=== PATIENT | male | born 1955 | race Caucasian/White ===

== ENCOUNTER 2016-10-29 12:13 | Observation (INO) | payer MEDICAID, OTHER ==
[2016-10-29] MEDS ORDERED: Sodium Chloride 0.9% 1,000 ML IV ONE (14:24)
[2016-10-29] MEDS ORDERED: Sodium Chloride 0.9% 1,000 ML ONE (14:34)
[2016-10-29 14:53] LABS: BASO % 0.6 % (0.0-2.0); EOS # 0.2 K/uL (0.0-0.7); EOS % 3.2 % (0.0-4.0); HEMATOCRIT 46.6 % (35.0-51.0); LYMPH # 0.9 K/uL (1.0-4.3); LYMPH % 15.7 % (20.0-40.0); MEAN CELL VOLUME 85.8 fL (80.0-94.0); MEAN CORPUSCULAR HEMOGLOBIN 28.5 pg (27.0-31.0); MEAN CORPUSCULAR HGB CONC 33.2 g/dL (33.0-37.0); MEAN PLATELET VOLUME 9.3 fL (7.2-11.7); MONO # 0.6 K/uL (0.0-0.8); MONO % 10.9 % (0.0-10.0); NRBC % 0.1 % (0.0-2.0); RED CELL DISTRIBUTION WIDTH 13.4 % (11.5-14.5); WHITE BLOOD COUNT 5.6 K/uL (4.8-10.8)
[2016-10-29 15:08] LABS: CHLORIDE 96 mmol/L (98-107); POTASSIUM 4.1 mmol/L (3.6-5.2); SODIUM 137 mmol/L (132-148)
[2016-10-29 15:10] LABS: ALKALINE PHOSPHATASE 141 U/L (38-126); AST/SGOT 120 U/L (17-59); CARBON DIOXIDE 31 mmol/L (22-30); GFR AFRICAN-AMERICAN > 60; TOTAL PROTEIN 7.6 g/dL (6.3-8.3)
[2016-10-29 15:11] LABS: ALCOHOL SERUM < 10 mg/dl (0-10); ALT/SGPT 109 U/L (21-72); BLOOD UREA NITROGEN 21 mg/dL (9-20); CALCIUM 8.7 mg/dl (8.6-10.4); GLUCOSE,RANDOM 96 mg/dL (75-110)
[2016-10-29] MEDS ORDERED: Iodixanol 320 MG/ML 100 ML BOTTLE IV ONE (16:21)
--- NOTE | 2016-10-29 17:40 | C.PDOC ---
History Of Present Illness The patient, a 61 y/o male presents to the emergency department for evaluation of sore throat and pain with swallowing which began 5 days ago. Patient states he was evaluated by his PMD 3 days ago and was prescribed antibiotics- PCN. (+) fever. Pt notes "i cant swallow". Pain and swelling all left sided. He also had one episode of vomiting today and notes there were "black specs" in the vomitus. No blood. Also note dental pain. Patient states his symptoms have still persisted and presents to the emergency department for further evaluation. He denies fever, chills, back pain. Time Seen by Provider: 10/29/16 12:39 Chief Complaint (Nursing): GI Problem History Per: Patient, Family History/Exam Limitations: no limitations Onset/Duration Of Symptoms: Days Current Symptoms Are (Timing): Still Present Additional History Per: Patient Past Medical History Reviewed: Historical Data, Nursing Documentation, Vital Signs Vital Signs: Last Vital Signs Temp 98 F 10/30/16 15:00 Pulse 61 10/30/16 15:00 Resp 20 10/30/16 15:00 BP 128/78 10/30/16 15:00 Pulse Ox 97 10/30/16 15:00 - Medical History Other PMH: Enlarged prostate and tremors Surgical History: No Surg Hx - [facility] Procedures CYSTOSCOPY NEC (07/17/13) TRANSURETH BLADD BIOPSY (07/17/13) Family History: States: Unknown Family Hx - Social History Hx Tobacco Use: No Hx Alcohol Use: No Hx Substance Use: No - Immunization History Hx Tetanus Toxoid Vaccination: No Hx Influenza Vaccination: No Hx Pneumococcal Vaccination: No Review Of Systems Except As Marked, All Systems Reviewed And Found Negative. Constitutional: Positive for: Fever, Chills ENT: Positive for: Throat Pain, Other (+painful swallowing ) Gastrointestinal: Positive for: Nausea, Vomiting Physical Exam - Physical Exam Appears: Non-toxic, Other (pt looks uncomfortable ) Skin: Normal Color, Warm, Dry Head: Atraumatic, Normacephalic Eye(s): bilateral: Normal Inspection, PERRL, EOMI Ear(s): Bilateral: Normal Nose: Normal, No Discharge Oral Mucosa: Moist, No Drooling, No Trismus Teeth: No Normal Dentition (poor dentition) Gingiva: Normal Appearing Throat: Exudate (left-sided ), No Drooling, Other (+left-sided swelling. able to swallow saliva ) Neck: Normal ROM, Supple Lymphatic: Adenopathy (left-sided cervical) Chest: Symmetrical, No Deformity, No Tenderness Cardiovascular: Rhythm Regular, No Murmur Respiratory: Normal Breath Sounds, No Rales, No Rhonchi, No Wheezing Gastrointestinal/Abdominal: Soft, No Tenderness, No Guarding, No Rebound Back: Normal Inspection, No Vertebral Tenderness, No Paraspinal Tenderness Extremity: Normal ROM, Capillary Refill (less than 2 seconds ) Neurological/Psych: Oriented x3, Normal Speech, Normal Cognition Gait: Steady ED Course And Treatment - Laboratory Results Result Diagrams: 10/30/16 07:17 10/30/16 07:17 ECG: Interpreted By Me, Viewed By Me ECG Rhythm: Sinus Rhythm Interpretation Of ECG: Sinus Rhythm at rate 81bpm. Rate From EC O2 Sat by Pulse Oximetry: 96 (on RA) Pulse Ox Interpretation: Normal - CT Scan/US neck CT Other Rad Studies (CT/US): Interpreted By Me, Read By Radiologist, Radiology Report Reviewed CT/US Interpretation: Accession No. : [id number]. Patient Name / ID : ROSANNE KUO / [id number]. Exam Date : 10/29/2016 16:29:15 ( Approved ). Study Comment : Sex / Age : M / [id number]. Creator : Cece Engel. Dictator : Cece Engel. Chemical Process Project Engineer : Production Worker : Cece Engel. Approver2 : Report Date : 10/29/2016 17:55:10. My Comment : . PROCEDURE: CT NECK WITH CONTRAST. HISTORY: difficulty swallowing. COMPARISON: None. TECHNIQUE : CT of the neck with intravenous contrast. Coronal and sagittal reformats generated. Intravenous contrast dose: 100 mL Visipaque 320. Radiation dose: DLP 382.53 mGy-cm. This CT exam was performed using one or more of the following dose reduction techniques: Automated exposure control, adjustment of the mA and/or kV according to patient size, and/or use of iterative reconstruction technique. FINDINGS: NASOPHARYNX: Unremarkable. SUPRAHYOID NECK: There is diffuse heterogeneous enhancing soft tissue swelling at the left suprahyoid neck extending from the level of the tonsils to the level of the focal cord. There is a complete obliteration of the left vallecula and left piriform sinus. INFRAHYOID NECK: No evidence of mass lesion at the larynx. MASS: The possibility of mass lesion at the left piriform sinus or left tonsil cannot be excluded. GLANDS: Parotid and submandibular glands unremarkable. Normal size thyroid gland, without nodule. LYMPH NODES: Mildly enlarged left mid to upper neck level 2 lymph nodes are seen. CERVICAL SPINE: No fracture or focal lesion. VASCULAR STRUCTURES: Atherosclerotic disease seen. Mild stenosis seen at the origin of the left internal carotid artery. OTHER FINDINGS: None. IMPRESSION: Enhancing soft tissue swelling at the left neck extending from the left tonsil to the level of the hyoid bone with complete obliteration of the left vallecula and left piriform sinus. The differential diagnosis includes malignant neoplasm versus infection process. Mildly enlarged level 2 left lymphadenopathy. Progress Note: labs, EKG, CT Neck ordered and reviewed. Pt received Toradol IV and IV Fluids. On ree-valuation, pt notes he feels much better. TOlerating juice. Pain improved. Afebrile. CT evlauated, Case discussed with DR Bermudez, agreed upon plan and treatment. Case discussed with Dr. Flanagan, CT discussed, and instructs hospital admission. Case dicussed with hospitalist, who agrees with plan for admission. Disposition - Disposition Disposition: HOSPITALIZED Disposition Time: 19:00 Condition: GOOD - Clinical Impression Clinical Impression: Pharyngitis, Lymphadenopathy, Difficulty swallowing - PA / TANK TRUCK MECHANIC / Resident Statement MD/DO has reviewed & agrees with the documentation as recorded. - Scribe Statement The provider has reviewed the documentation as recorded by the Scribe (Constanza Silvestre) All medical record entries made by the Scribe were at my direction and personally dictated by me. I have reviewed the chart and agree that the record accurately reflects my personal performance of the history, physical exam, medical decision making, and the department course for this patient. I have also personally directed, reviewed, and agree with the discharge instructions and disposition.
--- NOTE | 2016-10-29 17:56 | CT ---
PROCEDURE: CT NECK WITH CONTRAST HISTORY: difficulty swallowing COMPARISON: None TECHNIQUE: CT of the neck with intravenous contrast. Coronal and sagittal reformats generated. Intravenous contrast dose: 100 mL Visipaque 320 Radiation dose: DLP 382.53 mGy-cm This CT exam was performed using one or more of the following dose reduction techniques: Automated exposure control, adjustment of the mA and/or kV according to patient size, and/or use of iterative reconstruction technique. FINDINGS: NASOPHARYNX: Unremarkable. SUPRAHYOID NECK: There is diffuse heterogeneous enhancing soft tissue swelling at the left suprahyoid neck extending from the level of the tonsils to the level of the focal cord. There is a complete obliteration of the left vallecula and left piriform sinus INFRAHYOID NECK: No evidence of mass lesion at the larynx. MASS: The possibility of mass lesion at the left piriform sinus or left tonsil cannot be excluded GLANDS: Parotid and submandibular glands unremarkable. Normal size thyroid gland, without nodule. LYMPH NODES: Mildly enlarged left mid to upper neck level 2 lymph nodes are seen. CERVICAL SPINE: No fracture or focal lesion. VASCULAR STRUCTURES: Atherosclerotic disease seen. Mild stenosis seen at the origin of the left internal carotid artery. OTHER FINDINGS: None. IMPRESSION: Enhancing soft tissue swelling at the left neck extending from the left tonsil to the level of the hyoid bone with complete obliteration of the left vallecula and left piriform sinus. The differential diagnosis includes malignant neoplasm versus infection process. Mildly enlarged level 2 left lymphadenopathy.
[2016-10-29] MEDS ORDERED: Dexamethasone 4 mg/1 ml IVP STA (18:21)
[2016-10-29] MEDS ORDERED: Piperacillin/Tazobact 3.375 gm 100 ML IV STA (18:21)
[2016-10-29] MEDS ORDERED: Piperacillin/Tazobact 3.375 gm 100 ML IVPB ONE (18:29)
[2016-10-29] MEDS ORDERED: Dexamethasone 4 mg/1 ml ONE (18:29)
--- NOTE | 2016-10-29 19:57 | CP.PCM.HP ---
<Denia May - Last Filed: 10/29/16 22:55> History of Present Illness - History of Present Illness History of Present Illness: CC: my throat hurts HPI: 61 year old male PMHx BPH and tremors presents with left throat pain and fevers for 6 days. Patient reports symptoms started on Saturday with fever and chills for which he took tylenol. Patient stated that he was having some throat pain at the time but it was manageable. From Saturday until Saturday, however, the throat pain worsened and fevers continued. He described the pain as >20/10 and sharp and stabbing in nature and constant. He reported the tylenol would help bring his fever down but would not help magnolia the pain. The throat pain radiated to his left ear and he developed a headache. Patient reports a Tmax of 100.5F. On Saturday, he saw a physician, Dr. Gamez, [who is not his PMD as patient does not have a PMD] and was given Penicillin which he was supposed to take for 10 days. Patient took 4 doses of the PCN but as the pain and fevers persisted he decided to come in this morning. Patient also had four episodes of emesis on Saturday [the day before admission] which he reports happened after he tried to drink some milk, water, and juice. He denied any blood or coffee ground emesis but stated he noticed some black dots. This is the first time patient has had this constellation of symptoms. He reports pain with drinking liquids [ie gatorade, water, milk, chiku juice], and nausea. Patient last saw a dentist, John Pemberton, in March 2016. He reports that since he has had this throat pain he has been experiencing some pain in the bottom molars. Patient has never had any cavities, root canal, and has not had a wisdom tooth extraction. He does however, have poor dentition. He denies chewing tobacco/paan. On ROS patient admitted to fever, chills, weakness, headache, left ear pain, left sided face pain, sore throat, dysphagia, nausea, vomiting, and decreased appetite secondary to pain with swallowing. He deneid diaphoresis, headache, dizziness, lightheadedness, blurry vision, chest pain, palpitations, SOB, cough, abd pain, bowel/bladder complaints, hematemesis, hematochezia, back pain, leg pain, leg swelling, rash, easy bruising, easy bleeding, recent travel, recent sickness, sick contacts. Patient last visited [place] in May 2016. PMHx: BPH and tremors PSHx: denies ALL: denies Medications: Tamsulosin Social Hx: denies tobacco, EtOH, drugs. Patient lives at home with his son. Does not work. Family Hx: denies any cardiac issues, cancer, CVA in the family. Brother has DM2 PMD: denies ED Course: labs, EKG, CT Neck Enhancing soft tissue swelling at the left neck extending from the left tonsil to the level of the hyoid bone with complete obliteration of the left vallecula and left piriform sinus. The differential diagnosis includes malignant neoplasm versus infection process. Mildly enlarged level 2 left lymphadenopathy. Pt received Toradol IV and IV Fluids. Case discussed with Dr. Flanagan, who instructed hospital admission. Present on Admission - Present on Admission Any Indicators Present on Admission: No Review of Systems - Constitutional Constitutional: As Per HPI, Chills, Fever, Headache, Weight Loss, Weakness. absent: Excessive Sweating, Frequent Falls, Increased Appetite, Lethargy, Malaise, Night Sweats, Weight Gain - EENT Eyes: As Per HPI. absent: Change in Vision Ears: As Per HPI, Ear Pain (left sided). absent: Tinnitus, Disequilibrium, Dizziness Nose/Mouth/Throat: As Per HPI, Dental Pain (lower teeth), Dysphagia (secondary to pain), Sore Throat, Throat Swelling (L > R), Facial Pain (left side), Neck Pain (L > R), Neck Mass (left side). absent: Nasal Congestion, Post Nasal Drip , Change in Voice, Dry Mouth, Hoarsness, Lip Swelling, Mouth Lesions - Cardiovascular Cardiovascular: As Per HPI. absent: Chest Pain, Dyspnea, Edema, Leg Edema, Palpitations - Respiratory Respiratory: As Per HPI. absent: Cough, Hemoptysis, Dyspnea on Exertion, Wheezing, Chest Congestion - Gastrointestinal Gastrointestinal: As Per HPI, Dysphagia (secondary to pain), Nausea, Vomiting ( 4 times- nonbloody nonblious on day before admission). absent: Abdominal Pain, Coffee Ground Emesis, Constipation, Cramping, Diarrhea, Hematemesis, Hematochezia, Melena - Genitourinary Genitourinary: As Per HPI. absent: Dysuria, Hematuria, Pyuria, Nocturia - Musculoskeletal Musculoskeletal: As Per HPI. absent: Arthralgias, Back Pain, Numbness, Tingling - Integumentary Integumentary: As Per HPI, Swelling (left throat). absent: Pruritus, Rash - Neurological Neurological: As Per HPI, Headaches (radiating from throat), Weakness ( secondary to decreased PO intake). absent: Confusion, Dizziness, Syncope, Tingling - Psychiatric Psychiatric: As Per HPI. absent: Anxiety, Depression - Endocrine Endocrine: As Per HPI. absent: Palpitations, Polydipsia, Polyphagia, Polyuria - Hematologic/Lymphatic Hematologic: As Per HPI. absent: Easy Bleeding, Easy Bruising, Lymphadenopathy Past Patient History - Infectious Disease Hx of Infectious Diseases: None - Past Medical History & Family History Past Medical History?: Yes - Past Social History Smoking Status: Never Smoked - NEUROLOGICAL Hx Seizures: Yes - MUSCULOSKELETAL/RHEUMATOLOGICAL Hx Falls: Yes - GENITOURINARY/GYNECOLOGICAL Hx Prostate Problems: Yes Hx Urinary Tract Infection: Yes - PSYCHIATRIC Hx Substance Use: No - ANESTHESIA Hx Anesthesia: No Meds Allergies/Adverse Reactions: Allergies Allergy/AdvReac Type Severity Reaction Status Date / Time No Known Allergies Allergy Verified 05/29/15 18:11 Physical Exam - Constitutional Appears: Well, Non-toxic, No Acute Distress - Head Exam Head Exam: ATRAUMATIC, NORMAL INSPECTION, NORMOCEPHALIC - Eye Exam Eye Exam: EOMI, Normal appearance, PERRL. absent: Conjunctival injection, Scleral icterus Pupil Exam: NORMAL ACCOMODATION - ENT Exam ENT Exam: Mucous Membranes Dry Additional comments: no erythema noted some exudate on left side - Neck Exam Neck exam: Positive for: Full Rom, Lymphadenopathy (left side). Negative for: Meningismus, Normal Inspection, Tenderness (to palpation of cervical LN) Additional comments: left sided exudate and + left sided swelling non tender when palpating cervical LN + adenopathy on left side - Respiratory Exam Respiratory Exam: Clear to Auscultation Bilateral, NORMAL BREATHING PATTERN. absent: Accessory Muscle Use, Rales, Rhonchi, Wheezes, Respiratory Distress - Cardiovascular Exam Cardiovascular Exam: Tachycardia, REGULAR RHYTHM, +S1, +S2 - GI/Abdominal Exam GI & Abdominal Exam: Normal Bowel Sounds, Soft. absent: Firm, Guarding, Rigid, Tenderness - Rectal Exam Rectal Exam: Deferred - Extremities Exam Extremities exam: Positive for: normal capillary refill, normal inspection, pedal pulses present. Negative for: joint swelling, pedal edema, tenderness - Back Exam Back exam: NORMAL INSPECTION. absent: paraspinal tenderness, rash noted, tenderness - Neurological Exam Neurological exam: Alert, CN II-XII Intact, Oriented x3 - Psychiatric Exam Psychiatric exam: Normal Affect, Normal Mood - Skin Skin Exam: Dry, Intact, Normal Color, Warm Results - Vital Signs Recent Vital Signs: Last Vital Signs Temp 98.8 F 10/29/16 17:33 Pulse 75 10/29/16 19:01 Resp 18 10/29/16 19:01 BP 120/70 10/29/16 19:01 Pulse Ox 99 10/29/16 19:01 - Labs Result Diagrams: 10/29/16 14:48 10/29/16 14:48 Assessment & Plan - Assessment and Plan (Free Text) Assessment: 61 year old male PMHx BPH and tremors presents with left throat pain and fevers for 6 days Plan: Unilateral throat mass -likely secondary to infection vs neoplasm -CT Neck: Enhancing soft tissue swelling at the left neck extending from the left tonsil to the level of the hyoid bone with complete obliteration of the left vallecula and left piriform sinus. The differential diagnosis includes malignant neoplasm versus infection process. Mildly enlarged level 2 left lymphadenopathy -preop EKG, CXR, PT/INR ordered- f/u -no leukocytosis on admission -NPO -Zosyn 3.375gm IVPB Q6H -Tylenol solution 650mg po q4 prn for fever -Decadron 4mg ivp q8h true for inflammation -Toradol 30mg ivp q6 prn pain [mod] -NS @ 100cc/hr -f/u AM labs, lipid panel, HgbA1c -f/u blood culture -f/u throat culture -Consult Dr. Flanagan aware Transaminitis -patient has no alcohol history -AST 120 ALT 108 Alk Phos 141 -f/u acute hep panel -f/u Abd u/s CORNELL -BUN 21 Cr 1.1 -likely secondary to dehydration secondary to decreased PO intake and vomiting -NS @ 100cc/hr -f/u AM labs Hx BPH -hold home dose flomax 0.4mg po as patient cannot swallow well PPX -SCD -Protonix 40mg ivp daily -VTE ppx c/i in case patient goes to [place] -NPO -NS @ 100cc/hr Case discussed with Dr. Magi May PGY1 <Farooq Sow - Last Filed: 10/30/16 06:21> Results - Vital Signs Recent Vital Signs: Last Vital Signs Temp 98.2 F 10/30/16 00:00 Pulse 66 10/30/16 00:00 Resp 20 10/30/16 00:00 BP 122/78 10/30/16 00:00 Pulse Ox 96 10/30/16 00:00 - Labs Result Diagrams: 10/29/16 14:48 10/29/16 14:48 Assessment & Plan - Date & Time Date: 10/30/16 (I have seen and examined the patient. I agree with the findings and plan of care as documented by Dr. May. Patient with throat mass. Consult to Dr Flanagan. Alexussyn, Decadron, and symptomatic treatment. Also with transaminitis. Check hep panel and abdominal U/S. Monitor for acute changes.) Time: 06:20 Attending/Attestation - Attestation I have personally seen and examined this patient.: Yes I have fully participated in the care of the patient.: Yes I have reviewed all pertinent clinical information: Yes
[2016-10-29] MEDS ORDERED: Acetaminophen 650mg/20.3ml solution UD PO PRN (22:49)
[2016-10-29] MEDS: Sodium Chloride 0.9% 1,000 ML IV SCH (23:47)
[2016-10-29] MEDS: Dexamethasone 4 mg/1 ml IVP SCH (23:50)
[2016-10-30 00:19] VITALS: RESP 20
[2016-10-30] MEDS: Piperacill/Tazo 3.375gm in Dex 3.375 GM/50 ML BAG IVPB SCH ×3 (00:29→11:06)
[2016-10-30] MEDS: Dexamethasone 4 mg/1 ml IVP SCH ×2 (06:22→15:10)
[2016-10-30 07:38] LABS: INR 1.1
[2016-10-30 07:44] LABS: BASO % 0.3 % (0.0-2.0); EOS % 0.2 % (0.0-4.0); HEMATOCRIT 41.7 % (35.0-51.0); LYMPH # 0.5 K/uL (1.0-4.3); LYMPH % 15.2 % (20.0-40.0); MEAN CELL VOLUME 84.6 fL (80.0-94.0); MEAN CORPUSCULAR HGB CONC 34.3 g/dL (33.0-37.0); MEAN PLATELET VOLUME 9.2 fL (7.2-11.7); MONO # 0.1 K/uL (0.0-0.8); NRBC % 0.1 % (0.0-2.0); RED CELL DISTRIBUTION WIDTH 13.3 % (11.5-14.5); WHITE BLOOD COUNT 3.3 K/uL (4.8-10.8)
--- NOTE | 2016-10-30 07:51 | CP.PCM.PN ---
Subjective - Date & Time of Evaluation Date of Evaluation: 10/30/16 Time of Evaluation: 07:50 - Subjective Subjective: Patient seen and examined at bedside. Objective - Vital Signs/Intake and Output Vital Signs (last 24 hours): Temp Pulse Resp BP Pulse Ox 98.2 F 66 20 122/78 96 10/30/16 00:00 10/30/16 00:00 10/30/16 00:00 10/30/16 00:00 10/30/16 00:00 Intake and Output: 10/30/16 10/30/16 06:59 18:59 Intake Total 800 Balance 800 - Medications Medications: Current Medications Acetaminophen (Tylenol 650mg/20.3ml Solution Ud) 650 mg PO Q4H PRN PRN Reason: Fever >100.4 F Dexamethasone (Decadron Inj) 4 mg IVP Q8H [facility] Last Admin: 10/30/16 06:22 Dose: 4 mg Piperacillin Sod/Tazobactam Sod (Zosyn 3.375 Gm Iv Premix) 3.375 gm in 50 mls @ 100 mls/hr IVPB Q6H [facility] Last Admin: 10/30/16 05:37 Dose: 100 mls/hr Sodium Chloride (Sodium Chloride 0.9%) 1,000 mls @ 100 mls/hr IV .Q10H [facility] Last Admin: 10/29/16 23:47 Dose: 100 mls/hr Ketorolac Tromethamine (Toradol) 30 mg IVP Q6 PRN PRN Reason: Pain, moderate (4-7) Pantoprazole Sodium (Protonix Inj) 40 mg IVP DAILY [facility] Pneumococcal Polyvalent Vaccine (Pneumovax 23 Vaccine) 0.5 ml IM .ONCE ONE Stop: 11/01/16 10:01 - Labs Labs: 10/30/16 07:17 PT 13.0 SECONDS (9.7-12.2) H 10/30/16 07:17 INR 1.1 10/30/16 07:17 APTT 30 SECONDS (21-34) 10/30/16 07:17 Assessment and Plan - Assessment and Plan (Free Text) Assessment: Unilateral throat mass -likely secondary to infection vs neoplasm -CT Neck: Enhancing soft tissue swelling at the left neck extending from the left tonsil to the level of the hyoid bone with complete obliteration of the left vallecula and left piriform sinus. The differential diagnosis includes malignant neoplasm versus infection process. Mildly enlarged level 2 left lymphadenopathy -preop EKG, CXR, PT/INR ordered- f/u -no leukocytosis on admission -NPO -Zosyn 3.375gm IVPB Q6H -Tylenol solution 650mg po q4 prn for fever -Decadron 4mg ivp q8h true for inflammation -Toradol 30mg ivp q6 prn pain [mod] -NS @ 100cc/hr -f/u AM labs, lipid panel, HgbA1c -f/u blood culture -f/u throat culture -Consult Dr. Flanagan aware Transaminitis -patient has no alcohol history -AST 120 ALT 108 Alk Phos 141 -f/u acute hep panel -f/u Abd u/s CORNELL -BUN 21 Cr 1.1 -likely secondary to dehydration secondary to decreased PO intake and vomiting -NS @ 100cc/hr -f/u AM labs Hx BPH -hold home dose flomax 0.4mg po as patient cannot swallow well PPX -SCD -Protonix 40mg ivp daily -VTE ppx c/i in case patient goes to [place] -NPO -NS @ 100cc/hr
[2016-10-30 07:59] LABS: CHLORIDE 102 mmol/L (98-107); POTASSIUM 4.3 mmol/L (3.6-5.2); SODIUM 137 mmol/L (132-148)
[2016-10-30 08:01] LABS: ALB/GLOB RATIO 0.9 (1.0-2.1); ALKALINE PHOSPHATASE 117 U/L (38-126); ALT/SGPT 79 U/L (21-72); AST/SGOT 61 U/L (17-59); BILIRUBIN,TOTAL 1.2 mg/dL (0.2-1.3); BLOOD UREA NITROGEN 29 mg/dL (9-20); CARBON DIOXIDE 24 mmol/L (22-30); CHOLESTEROL 158 mg/dL (0-199); GFR AFRICAN-AMERICAN > 60; TOTAL PROTEIN 6.6 g/dL (6.3-8.3)
[2016-10-30 08:02] LABS: GLUCOSE,RANDOM 142 mg/dL (75-110); MAGNESIUM 2.6 mg/dL (1.6-2.3); PHOSPHOROUS 4.8 mg/dL (2.5-4.5)
--- NOTE | 2016-10-30 09:03 | RAD ---
Chest x-ray two views History: Preoperative clearance. Comparison: 07/17/2013 Findings: Mild venous congestion. Minimal patchy increased markings at the left lung base. Clinical correlation. Heart size within normal limits. Degenerative changes in the spine and shoulders. Impression: Mild venous congestion. Minimal patchy increased markings at the left lung base. Clinical correlation.
--- NOTE | 2016-10-30 10:43 | US ---
HISTORY: transaminitis COMPARISON: CT abdomen and pelvis without contrast performed 05/29/15 TECHNIQUE: Sonographic evaluation of the abdomen. FINDINGS: LIVER: Measures 11.9 cm in sagittal dimension. Echogenic liver may be seen in setting of hepatic parenchymal disease or fatty infiltration. No focal hepatic mass identified. The main portal vein appears patent with normal directional flow. No intrahepatic bile duct dilatation. GALLBLADDER: No gallstones. No gallbladder wall thickening. Negative sonographic Dennis's sign as assessed by the security associate. COMMON BILE DUCT: Measures 4 mm. No stones. No dilatation. PANCREAS: Not well visualized. RIGHT KIDNEY: Measures approximately 8.7 x 5.0 x 4.7 cm. No hydronephrosis or obstructing calculus identified. LEFT KIDNEY: Measures approximately 9.4 x 4.7 x 5.0. No hydronephrosis or obstructing calculus identified. SPLEEN: Measures approximately 10.6 cm. AORTA: Limited views appear unremarkable. IVC: Limited views appear unremarkable. OTHER FINDINGS: None. IMPRESSION: Echogenic liver may be seen in setting of hepatic parenchymal disease or fatty infiltration.
--- NOTE | 2016-10-30 11:01 | OP ---
PROCEDURE DATE: 10/29/2016 PREOPERATIVE DIAGNOSIS: Dysphagia. POSTOPERATIVE DIAGNOSIS: Dysphagia. PROCEDURE: Flexible laryngoscopy. SIGNIFICANT FINDINGS: No erythema, no edema. DESCRIPTION OF PROCEDURE: The patient was placed in a seated position. The nose was decongested usi ng Afrin. A flexible laryngoscope was inserted into the nasal cavity, passed through the nasopharynx , oropharynx, and hypopharynx. Erythema of the pharyngeal wall was not noted. The pharyngeal bowen, base of tongue, vallecula, epiglottis, AE folds, false cords, true cords, arytenoids and piriform si nuses were brought into view. No masses or lesions were noted. No erythema or edema was noted. The scope was removed. The patient tolerated the procedure well. Gaagn Flanagan MD cc: [id number] TT: 10/30/2016 10:59:57 kvng
[2016-10-30] MEDS: Sodium Chloride 0.9% 1,000 ML IV SCH (11:05)
--- NOTE | 2016-10-30 11:55 | CARD ---
APPROVED REPORT EKG Measurement Heart [id number] <Conclusion> Normal sinus rhythm Normal ECG
[2016-10-30 16:20] VITALS: BP 128/78; PULSE 61; TEMP 98
--- NOTE | 2016-10-30 21:18 | CP.PCM.DIS ---
Provider - Provider Date of Admission: 10/29/16 18:27 Attending physician: Santi Franco MD Primary care physician: none but sees Dr. Almeida Consults: ENT, Dr. Flanagan Time Spent in preparation of Discharge (in minutes): 31 Diagnosis - Discharge Diagnosis (1) Throat mass Status: Acute Comment: please see hospital course (2) BPH (benign prostatic hyperplasia) Status: Chronic Comment: please see hospital course (3) Transaminitis Status: Acute Comment: see hospital course Hospital Course - Lab Results Lab Results: Most Recent Lab Values WBC 3.3 K/uL (4.8-10.8) L 10/30/16 07:17 RBC 4.93 Mil/uL (4.40-5.90) 10/30/16 07:17 Hgb 14.3 g/dL (12.0-18.0) 10/30/16 07:17 Hct 41.7 % (35.0-51.0) 10/30/16 07:17 MCV 84.6 fL (80.0-94.0) 10/30/16 07:17 MCH 29.0 pg (27.0-31.0) 10/30/16 07:17 MCHC 34.3 g/dL (33.0-37.0) 10/30/16 07:17 RDW 13.3 % (11.5-14.5) 10/30/16 07:17 Plt Count 168 K/uL (130-400) 10/30/16 07:17 MPV 9.2 fL (7.2-11.7) 10/30/16 07:17 Neut % (Auto) 82.3 % (50.0-75.0) H 10/30/16 07:17 Lymph % (Auto) 15.2 % (20.0-40.0) L 10/30/16 07:17 Towns % (Auto) 2.0 % (0.0-10.0) 10/30/16 07:17 Eos % (Auto) 0.2 % (0.0-4.0) 10/30/16 07:17 Baso % (Auto) 0.3 % (0.0-2.0) 10/30/16 07:17 Neut # 2.7 K/uL (1.8-7.0) 10/30/16 07:17 Lymph # 0.5 K/uL (1.0-4.3) L 10/30/16 07:17 Towns # 0.1 K/uL (0.0-0.8) 10/30/16 07:17 Eos # 0.0 K/uL (0.0-0.7) 10/30/16 07:17 Baso # 0.0 K/uL (0.0-0.2) 10/30/16 07:17 PT 13.0 SECONDS (9.7-12.2) H 10/30/16 07:17 INR 1.1 10/30/16 07:17 APTT 30 SECONDS (21-34) 10/30/16 07:17 Sodium 137 mmol/L (132-148) 10/30/16 07:17 Potassium 4.3 mmol/L (3.6-5.2) 10/30/16 07:17 Chloride 102 mmol/L (98-107) 10/30/16 07:17 Carbon Dioxide 24 mmol/L (22-30) 10/30/16 07:17 Anion Gap 15 (10-20) 10/30/16 07:17 BUN 29 mg/dL (9-20) H 10/30/16 07:17 Creatinine 1.0 MG/DL (0.8-1.5) 10/30/16 07:17 Est GFR ( Amer) > 60 10/30/16 07:17 Est GFR (Non-Af Amer) > 60 10/30/16 07:17 Random Glucose 142 mg/dL (75-110) H 10/30/16 07:17 Hemoglobin A1c 5.8 % (4.2-6.5) 10/30/16 07:17 Calcium 8.0 mg/dl (8.6-10.4) L 10/30/16 07:17 Phosphorus 4.8 mg/dL (2.5-4.5) H 10/30/16 07:17 Magnesium 2.6 mg/dL (1.6-2.3) H 10/30/16 07:17 Total Bilirubin 1.2 mg/dL (0.2-1.3) 10/30/16 07:17 AST 61 U/L (17-59) H D 10/30/16 07:17 ALT 79 U/L (21-72) H D 10/30/16 07:17 Alkaline Phosphatase 117 U/L (38-126) 10/30/16 07:17 Total Protein 6.6 g/dL (6.3-8.3) 10/30/16 07:17 Albumin 3.2 g/dL (3.5-5.0) L 10/30/16 07:17 Globulin 3.5 gm/dL (2.2-3.9) 10/30/16 07:17 Albumin/Globulin Ratio 0.9 (1.0-2.1) L 10/30/16 07:17 Triglycerides 117 mg/dL (0-149) 10/30/16 07: Cholesterol 158 mg/dL (0-199) 10/30/16 07:17 LDL Cholesterol Direct 97 mg/dL (0-129) 10/30/16 07:17 HDL Cholesterol 28 mg/dL (30-70) L 10/30/16 07:17 Lipase 86 U/L (23-300) 10/29/16 14:48 Alcohol, Quantitative < 10 mg/dl (0-10) 10/29/16 14:48 Hepatitis A IgM Ab Negative (NEGATIVE) 10/30/16 07: Hep Bs Antigen Negative (NEGATIVE) 10/30/16 07:17 Hep B Core IgM Ab Negative (NEGATIVE) 10/30/16 07:17 Hepatitis C Antibody Negative (NEGATIVE) 10/30/16 07:17 - Hospital Course Hospital Course: On admission: HPI: 61 year old male PMHx BPH and tremors presents with left throat pain and fevers for 6 days. Patient reports symptoms started on Saturday with fever and chills for which he took tylenol. Patient stated that he was having some throat pain at the time but it was manageable. From Saturday until Saturday, however, the throat pain worsened and fevers continued. He described the pain as >20/10 and sharp and stabbing in nature and constant. He reported the tylenol would help bring his fever down but would not help magnolia the pain. The throat pain radiated to his left ear and he developed a headache. Patient reports a Tmax of 100.5F. On Saturday, he saw a physician, Dr. Gamez, [who is not his PMD as patient does not have a PMD] and was given Penicillin which he was supposed to take for 10 days. Patient took 4 doses of the PCN but as the pain and fevers persisted he decided to come in this morning. Patient also had four episodes of emesis on Saturday [the day before admission] which he reports happened after he tried to drink some milk, water, and juice. He denied any blood or coffee ground emesis but stated he noticed some black dots. This is the first time patient has had this constellation of symptoms. He reports pain with drinking liquids [ie gatorade, water, milk, chiku juice], and nausea. Patient last saw a dentist, John Pemberton, in March 2016. He reports that since he has had this throat pain he has been experiencing some pain in the bottom molars. Patient has never had any cavities, root canal, and has not had a wisdom tooth extraction. He does however, have poor dentition. He denies chewing tobacco/paan. On ROS patient admitted to fever, chills, weakness, headache, left ear pain, left sided face pain, sore throat, dysphagia, nausea, vomiting, and decreased appetite secondary to pain with swallowing. He deneid diaphoresis, headache, dizziness, lightheadedness, blurry vision, chest pain, palpitations, SOB, cough, abd pain, bowel/bladder complaints, hematemesis, hematochezia, back pain, leg pain, leg swelling, rash, easy bruising, easy bleeding, recent travel, recent sickness, sick contacts. Patient last visited [place] in May 2016. PMHx: BPH and tremors PSHx: denies ALL: denies Medications: Tamsulosin Social Hx: denies tobacco, EtOH, drugs. Patient lives at home with his son. Does not work. Family Hx: denies any cardiac issues, cancer, CVA in the family. Brother has DM2 PMD: denies During hospital course, the following imaging was done: CT Neck (10/29/16): Enhancing soft tissue swelling at the left neck extending from the left tonsil to the level of the hyoid bone with complete obliteration of the left vallecula and left piriform sinus. The differential diagnosis includes malignant neoplasm versus infection process. Mildly enlarged level 2 left lymphadenopathy Chest X-RAY (10/29/16): Minimal patchy increased markings at left lung base. Abdominal US (10/29/16): Echogenic liver may be seen in setting of hepatic parenchymal disease or fatty infiltration. ENT, Dr. Flanagan was consulted. Patient was started on antibiotic Zosyn 3.375 gm IVPB q6h, Decadron 4 mg IVP q8h for inflammation, and Toradol 30 mg IVP q6 prn for moderate pain. Patient was also started on IV normal saline at 100cc/hr. Blood cultures and throat culture were obtained. Transaminitis was also noted and Hepatitis panel (negative) and Abdominal US were obtained. Patient was instructed to follow-up with his primary care doctor regarding findings of echogenic liver. Patient's pain improved significantly with management. After evaluation by Dr. Flanagan, patient was discharged on Augmentin and instructed to follow-up with Dr. Flanagan as outpatient. Discharge Instructions: Patient medically stable for discharge home. Patient instructed to resume taking home medications: miralax and flomax 0.4 mg by mouth daily Patient instructed to take the following new medications as prescribed: Augmentin 875-125mg by mouth twice daily for 7 days (total of 14 tabs) Medrol dose Pack as directed (21 tabs) Patient instructed to follow-up with ear, nose and throat specialist, Dr. Flanagan , as an outpatient within one week. Patient instructed to follow-up with primary care doctor for post- hospitalization follow-up and care and for liver findings detected on abdominal ultrasound. Patient instructed to return to the emergency department if symptoms recur. Patient given detailed instructions at bedside. Patient understands and agrees. - Date & Time of H&P Date of H&P: 10/29/16 Time of H&P: 19:57 Discharge Exam - Head Exam Head Exam: ATRAUMATIC, NORMAL INSPECTION, NORMOCEPHALIC - Eye Exam Eye Exam: EOMI, Normal appearance Pupil Exam: PERRL - ENT Exam ENT Exam: Mucous Membranes Moist Additional comments: mouth opening aperture normal discrete mass palpated to inferior to left mandible mild tenderness to palpation - Respiratory Exam Respiratory Exam: Clear to PA & Lateral, NORMAL BREATHING PATTERN. absent: Rales, Rhonchi, Wheezes - Cardiovascular Exam Cardiovascular Exam: +S1, +S2. absent: Bradycardia, Tachycardia, Diastolic murmur, Systolic Murmur - GI/Abdominal Exam GI & Abdominal Exam: Normal Bowel Sounds - Extremities Exam Extremities exam: normal capillary refill, pedal pulses present - Back Exam Back exam: FULL ROM. absent: tenderness, vertebral tenderness - Neurological Exam Neurological exam: Alert, CN II-XII Intact, Oriented x3 - Skin Skin Exam: Dry, Intact Discharge Plan - Discharge Medications Prescriptions: Amoxicillin/Clavulanate [Augmentin 875 MG-125 MG] 1 tab PO BID #14 tab Methylprednisolone [Medrol Dose Pack (21 tabs)] 4 mg PO DAILY #21 mg - Follow Up Plan Condition: GOOD Disposition: HOME/ ROUTINE Instructions: Amoxicillin/Clavulanate Potassium (By mouth), Methylprednisolone (By mouth), Benign Prostatic Hypertrophy (DC), Benign Prostatic Hypertrophy (GEN ), Urinary Tract Infection in Men (DC), Urinary Tract Infection in Men (GEN), Pharyngitis (GEN) Additional Instructions: Patient medically stable for discharge home. Patient instructed to resume taking home medications: miralax and flomax 0.4 mg by mouth daily Patient instructed to take the following new medications as prescribed: Augmentin 875-125mg by mouth twice daily for 7 days (total of 14 tabs) Medrol dose Pack as directed (21 tabs) Patient instructed to follow-up with ear, nose and throat specialist, Dr. Flanagan , as an outpatient within one week. Patient instructed to follow-up with primary care doctor for post- hospitalization follow-up and care and for liver findings detected on abdominal ultrasound. Patient instructed to return to the emergency department if symptoms recur. Patient given detailed instructions at bedside. Patient understands and agrees. Referrals: Gagan Flanagan MD [Staff Provider] -
[2016-11-01] MEDS ORDERED: Pneumococcal 23-Valent Vaccine IM ONE (10:00)
[2016-11-02 00:45] VITALS: O2SAT 96
== END 2016-10-30 16:37 | disposition home or self-care (01) ==
LOC: C.ER 12:13 → C.9E 18:27 → C.3T 21:55
PROVIDERS: ADMIT Internal Medicine; ATTEND Internal Medicine
DX: R13.10 Dysphagia, unspecified (principal); N40.0 Benign prostatic hyperplasia without lower urinary tract symptoms
CPT/HCPCS: 31575; 36415; 70491; 71020; 76700; 80053; 80061; 80074; 83036; 83690; 83735; 84100; 85025; 85610; 85730; 87040; 87070; 93005; 96361; 96365; 96366; 96375; 96376; 99285; C9113; G0378; G0480; J1100; J1885; J2543; J7040; Q9967